=== PATIENT | male | born 1980 | race Caucasian/White ===

== ENCOUNTER 2016-12-27 06:56 | Emergency (ER) | payer OTHER ==
[2016-12-27 07:09] VITALS: BP 128/85
--- NOTE | 2016-12-27 07:41 | ERNOTE ---
Medical Problem HPI - Narrative Date of Service: 12/27/16 - General Chief Complaint: Flu Symptoms Time Seen by Provider: 12/27/16 07:15 Source: patient Exam Limitations: no limitations - Immun/Allergies/Home Medications Immunizations: IMMUNIZATION HX Immunizations Up to Date Yes History of Influenza Vaccine No Hx Pneumococcal Vaccination No Allergies/Adverse Reactions: Allergies No Known Allergies Allergy (Unverified 12/27/16 07:09) Home Medications: HOME MEDICATIONS Sulfamethoxazole/Trimethoprim [Bactrim Ds] 1 tab PO BID #14 tablet 12/27/16 [ Last Taken Unknown] - History of Present History Narrative: here for fear that he has MRSA as his daughter and girlfriend have recently been diagnosed with MRSA. Patient states he has several areas on his buttocks that itch and are slightly raised. He denies any purulent pus filled lesions anywhere on his body. Review of Systems - Review of Systems Constitutional: Present: fatigue EYE: Present: no symptoms reported ENT: Present: no symptoms reported Respiratory: Present: no symptoms reported Cardiology: Present: no symptoms reported Gastrointestinal/Abdominal: Present: no symptoms reported Genitourinary: Present: no symptoms reported Musculoskeletal: Present: no symptoms reported Skin: Present: See HPI - Patient's Past Medical History Patient History - Medical: Fibromyalgia Patient History - Cardiac/Respiratory: No pertinent hx Patient History - Cancer: No Hx of Cancer Patient History - Surgical Procedures: Back Surgery Patient History - Other: None - Social History Living Situations: significant other Abuse History: No History of abuse Psych History: No pertinent hx Smoking Status: Current every day smoker Have you smoked in the past 12 months: Yes Do you dip or chew tobacco: No Alcohol Use: none Drug Use: marijuana - Immunizations Immunizations Up to Date: Yes Hx Pneumococcal Vaccination: No History of Influenza Vaccine: No Physical Exam - Physical Exam General Appearance: Present: wd/wn, alert, no apparent distress Head Exam: Present: normal inspection, no evidence of injury Ears, Nose, Throat: Present: normal ENT inspection Back Exam: Present: normal inspection, other - patient does have multiple areas of follicular eruption on his buttocks bilaterally to on the right side. Left side and it appears to be classic for folliculitis. Extremity Exam: Present: normal inspection, non-tender, normal range of motion, no edema Neurological Exam: Present: alert, oriented, normal mood/affect, no motor/ sensory deficits Skin Exam: Present: other - patient does have a few lesions that appear to be classic for folliculitis on his blood tox and one on his left upper arm. ED Progress - Vital Signs Patient's Vital Signs:: I have reviewed the patient's vital signs. - patient is orthostatic negative when he stands up. Vital Signs: Vital Signs 12/27/16 12/27/16 07:03 07:22 Temperature 36.3 C L Pulse Rate 98 93 Respiratory 14 Rate Blood Pressure 128/85 O2 Sat by Pulse 98 Oximetry - Progress/Reassessment Chief Complaint: Flu Symptoms Departure Clinical Impression: Folliculitis - Departure Disposition: Home self-care Condition: Good Additional Instructions: Ear exam reveals that you may have what we call folliculitis on your buttocks and on your left upper arm please take your antibiotics and follow-up with your primary care doctor Prescriptions: Sulfamethoxazole/Trimethoprim [Bactrim Ds] 1 tab PO BID #14 tablet
== END 2016-12-27 07:48 | disposition home or self-care (01) ==
LOC: ER 06:56
DX: L73.9 Follicular disorder, unspecified (principal); F17.200 Nicotine dependence, unspecified, uncomplicated